=== PATIENT | male | born 1955 | race Caucasian/White ===

== ENCOUNTER 2018-10-18 13:32 | Inpatient (IN) | payer MEDICARE ==
[~2018-10-18] VITALS: Ht 175.3 cm; Wt 77.1 kg
[~2018-10-18 13:32] MED LIST: ALBUTEROL INHAL17 GM IH; CYCLOBENZAPRINE; CYMBALTA60 MG PO; FLEXERIL; FLEXERIL PO; FLOMAX0.4 MG PO; HYDROCODON-ACE1 EAC7 PO; HYOSCYAMINE0.375 M2 PO; MEDROLDOSEPACK PO; MIRAPEX 0.250.25 M1; MOBIC15 MG; NEURONTIN 300300 M1; NORCO 5-325 TA1 EAC1 PO; NORCO 5-325 TA1 EACH PO; OMEPRAZOLE40 MG; REQUIP 0.25 M0.25 MG PO; REQUIP XL2 MG; ZOFRAN ODT4 MG PO; ZOFRAN8 MG PO
[2018-10-18] MEDS ORDERED: CLONAZEPAM 1 MG1 M1 PO (13:45)
[2018-10-18 13:56] LABS: ABSOLUTE BASOPHILS 0.1 thou/uL (0.0-0.2); ABSOLUTE EOSINOPHILS 0.1 thou/uL (0.0-0.7); ABSOLUTE LYMPHOCYTES 1.1 thou/uL (0.8-5.3); ABSOLUTE MONOCYTES 0.9 thou/uL (0.0-1.2); BASOPHILS 0.8 %; EOSINOPHILS 1.7 %; HEMATOCRIT 46.3 % (42.0-52.0); HEMOGLOBIN 16.1 gm/dL (14.0-18.0); LYMPHOCYTES 17.6 %; MCH 32.1 pg (26.0-34.0); MCHC 34.7 g/dL (28.0-37.0); MCV 92.4 fL (80.0-100.0); MONOCYTES 14.2 %; MPV 7.9 fl. (7.2-11.1); NUCLEATED RBCS 0 /100WBC; PLATELET COUNT* 273 thou/uL (150-400); POLYS 65.7 %; RBC 5.01 mil/uL (4.50-6.00); RDW-CV 14.2 % (10.5-14.5)
[2018-10-18 14:13] LABS: APTT 30.8 Seconds (25.0-31.3); PROTIME 10.4 Seconds (9.20-11.50)
[2018-10-18 14:19] LABS: ALKALINE PHOSPHATASE 73 U/L (46-116); ANION GAP 9 mmol/L (7-16); BUN 8 mg/dL (7-18); CALCIUM 9.1 mg/dL (8.5-10.1); CHLORIDE 105 mmol/L (98-107); CO2 26 mmol/L (21-32); CREATININE 1.1 mg/dL (0.6-1.3); GLUCOSE 86 mg/dL (70-99); NT-PRO BRAIN NAT PEPTIDE 249 pg/mL (<300); POTASSIUM 3.7 mmol/L (3.5-5.1); SGOT 28 U/L (15-37); SGPT 33 U/L (30-65); SODIUM 140 mmol/L (136-145); TOTAL BILIRUBIN 0.8 mg/dL (<0.1-1.0); TOTAL PROTEIN 7.5 g/dL (6.4-8.2); TROPONIN-I LEVEL <0.06 ng/mL (<0.06)
[2018-10-18 14:24] LABS: BE 3.4 mmol/L (-2 to +3); PCO2 20.3 mmHg (35.0-45.0)
[2018-10-18 14:27] LABS: PO2 376.5 mmHg (75.0-100.0); pH 7.643 (7.340-7.450)
--- NOTE | 2018-10-18 14:44 | EKG ---
[place] [address] ELECTROCARDIOGRAM REPORT Name: EDOUARDGENI KNOWLES Room: [facility]#: [id number] Admission: 10/18/18 Attend Phys: Discharge: Date of : 53 Report #: [id number] THIS REPORT FOR: //name// 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 : 1955 Requested By: Wiliam Chen Order Number: [id number] MD: Enmanuel Altamirano Measurements Intervals Reubens Rate: 77 P: 67 GA: 143 QRS: 7 QRSD: 104 T: 79 QT: 404 QTc: 458 Interpretive Statements Sinus rhythm RSR' in V1 or V2, probably normal variant Compared to ECG 01/21/2010 21:22:31 RSR' in V1 or V2 now present Electronically Signed On 10-18-2018 14:43:54 CDT by Enmanuel Altamirano [email or web address] <ELECTRONICALLY SIGNED> By: Enmanuel Altamirano MD, [facility] 10/18/18 1443 36 36 Enmanuel Altamirano MD, FAC /EPI
[2018-10-18 18:31] LABS: BE 1.6 mmol/L (-2 to +3); PCO2 38.8 mmHg (35.0-45.0); pH 7.438 (7.340-7.450)
[2018-10-18 20:30] VITALS: BP 149/85
[2018-10-19] VITALS (36 sets, daily range): BP systolic 84–134; BP diastolic 46–82
[2018-10-19 04:13] LABS: HEMATOCRIT 46.9 % (42.0-52.0); HEMOGLOBIN 15.8 gm/dL (14.0-18.0); MCH 31.3 pg (26.0-34.0); MCHC 33.7 g/dL (28.0-37.0); MPV 8.3 fl. (7.2-11.1); RBC 5.05 mil/uL (4.50-6.00); RDW-CV 14.3 % (10.5-14.5); WBC 7.5 thou/uL (4.0-11.0)
[2018-10-19 04:33] LABS: ALBUMIN 3.8 g/dL (3.4-5.0); CALCIUM 8.9 mg/dL (8.5-10.1); CREATININE 1.4 mg/dL (0.6-1.3); POTASSIUM 3.7 mmol/L (3.5-5.1); TOTAL PROTEIN 7.3 g/dL (6.4-8.2)
[2018-10-19 05:13] LABS: BE 1.6 mmol/L (-2 to +3); PCO2 38.8 mmHg (35.0-45.0); PO2 103.8 mmHg (75.0-100.0); pH 7.438 (7.340-7.450)
[2018-10-19 09:33] LABS: INFLUENZA A ANTIGEN None Detected (None Detect); INFLUENZA B ANTIGEN None Detected (None Detect)
--- NOTE | 2018-10-19 12:57 | 2DMMODE ---
[place] [address] 2 D/M-MODE ECHOCARDIOGRAM Name: SILKEGENI KNOWLES Room: 003-P [facility] IN [facility]#: [id number] Admission: 10/18/18 Attend Phys: Tegan Salcedo, Discharge: Date of : 53 Date of Service: 10/19/18 1257 Report #: [id number] THIS REPORT FOR: //name// APPROVED REPORT Study performed: 10/19/2018 08:58:06 EXAM: Comprehensive 2D, Doppler, and color-flow Echocardiogram Patient Location: In-Patient Room #: 003 Status: routine BSA: 1.99 HR: 70 bpm BP: 149/85 mmHg Rhythm: NSR Other Information Study Quality: Good Indications Respiratory failure 2D Dimensions IVSd: 13.64 (7-11mm) LVOT Diam: 19.00 (18-24mm) LVDd: 50.93 mm PWd: 11.10 (7-11mm) Ascending Ao: 30.55 (22-36mm) LVDs: 36.50 (25-40mm) M-Mode Dimensions Aortic Root: 28.00 (22-37mm) Volumes Left Atrial Volume (Systole) LA ESV Index: 21.30 mL/m2 Aortic Valve AoV Peak Davonte.: 1.20 m/s AO Peak Gr.: 5.80 mmHg LVOT Max P.00 mmHg AO Mean Gr.: 3.36 mmHg LVOT Mean P.68 mmHg LVOT Max V: 1.00 m/s AO V2 VTI: 23.83 cm LVOT Mean V: 0.59 m/s LVOT V1 VTI: 19.94 cm Mitral Valve E/A Ratio: 1.36 [place] [address] 2 D/M-MODE ECHOCARDIOGRAM Name: GENI EDOUARD Room: [address] IN .R.#: [id number] Admission: 10/18/18 Attend Phys: Tegan Salcedo, Discharge: Date of : 53 Date of Service: 10/19/18 1257 Report #: [id number] MV Decel. Time: 213.41 ms MV E Max Davonte.: 0.69 m/s MV PHT: 61.89 ms MVA (PHT): 3.55 cm2 TDI E/Lateral E': 6.90 E/Medial E': 7.67 Medial E' Davonte.: 0.09 m/s Lateral E' Davonte.: 0.10 m/s Pulmonary Valve PV Peak Davonte.: 1.23 m/s PV Peak Gr.: 6.04 mmHg Left Ventricle The left ventricle is normal size. There is normal LV segmental wall motion. There is normal left ventricular wall thickness. Left ventricular systolic function is normal. The left ventricular ejection fraction is within the normal range. LVEF is 55-60%. The left ventricular diastolic function is normal. Right Ventricle The right ventricle is normal size. The right ventricular systolic function is normal. Atria The left atrium size is normal. The right atrium size is normal. Aortic Valve Mild aortic valve sclerosis. No aortic regurgitation is present. There is no aortic valvular stenosis. Mitral Valve The mitral valve is normal in structure. There is no mitral valve regurgitation noted. No evidence of mitral valve stenosis. Tricuspid Valve The tricuspid valve is normal in structure. Unable to assess PA pressure. Trace tricuspid regurgitation. Pulmonic Valve The pulmonary valve is normal in structure. There is no pulmonic valvular regurgitation. Great Vessels The aortic root is normal in size. IVC [place] [address] 2 D/M-MODE ECHOCARDIOGRAM Name: GENI EDOUARD Room: [address] IN [facility]#: [id number] Admission: 10/18/18 Attend Phys: Tegan Salcedo, Discharge: Date of : 53 Date of Service: 10/19/18 1257 Report #: [id number] collapses >50% with inspiration. Pericardium There is no pericardial effusion. <Conclusion> The left ventricle is normal size. There is normal left ventricular wall thickness. Left ventricular systolic function is normal. The left ventricular ejection fraction is within the normal range. LVEF is 55-60%. The left ventricular diastolic function is normal. The right ventricle is normal size. The left atrium size is normal. Mild aortic valve sclerosis. No aortic regurgitation is present. There is no aortic valvular stenosis. The mitral valve is normal in structure. The tricuspid valve is normal in structure. IVC is normal in size and collapses >50% with inspiration. There is no pericardial effusion. There is normal LV segmental wall motion. <ELECTRONICALLY SIGNED> By: Enmanuel Altamirano MD, FACC 10/19/18 1257 1257 1257 Enmanuel Altamirano MD, FACC /INF
[2018-10-19 15:44] LABS: URINE BILIRUBIN NEGATIVE (Negative); URINE BLOOD NEGATIVE (Negative); URINE CLARITY CLEAR; URINE COLOR YELLOW; URINE GLUCOSE-RANDOM NEGATIVE (Negative); URINE KETONES NEGATIVE (Negative); URINE LEUKOCYTES-REFLEX NEGATIVE (Negative); URINE NITRITE-REFLEX NEGATIVE (Negative); URINE PROTEIN NEGATIVE (Negative); URINE UROBILINOGEN 0.2 E.U./dl (0.2-1.0)
[2018-10-19 15:57] LABS: AMP/METHAMP Negative (Negative); BARBITURATES Negative (Negative); BENZODIAZEPINES POSITIVE (Negative); COCAINE Negative (Negative); METHADONE Negative (Negative); OPIATES Negative (Negative); PCP Negative (Negative); THC POSITIVE (Negative)
[2018-10-20] VITALS (34 sets, daily range): BP systolic 89–163; BP diastolic 48–96
[2018-10-20 01:37] LABS: HEMATOCRIT 43.2 % (42.0-52.0); HEMOGLOBIN 14.4 gm/dL (14.0-18.0); MCH 31.4 pg (26.0-34.0); MCHC 33.3 g/dL (28.0-37.0); MCV 94.3 fL (80.0-100.0); MPV 8.5 fl. (7.2-11.1); RBC 4.58 mil/uL (4.50-6.00); RDW-CV 14.7 % (10.5-14.5)
[2018-10-20 01:59] LABS: CALCIUM 8.3 mg/dL (8.5-10.1); CREATININE 1.3 mg/dL (0.6-1.3); MAGNESIUM 2.1 mg/dL (1.8-2.4); POTASSIUM 3.9 mmol/L (3.5-5.1)
[2018-10-20 05:54] LABS: BE -1.9 mmol/L (-2 to +3); PCO2 45.1 mmHg (35.0-45.0); PO2 81.7 mmHg (75.0-100.0); pH 7.344 (7.340-7.450)
--- NOTE | 2018-10-20 11:19 | CON ---
[address] [address] CONSULTATION Name: SILKEGENI KNOWLES Room: [address] IN M.R.#: [id number] Admission: 10/18/18 Attend Phys: Tegan Salcedo MD Discharge: Date of : 53 Report #: [id number] THIS REPORT FOR: //name// CC: Chrsi Salcedo DATE OF SERVICE: 10/19/2018 REASON FOR EVALUATION: Evaluate for acute respiratory failure, COPD with asthma exacerbation. REFERRING PHYSICIAN: Dr. Salcedo. HISTORY OF PRESENT ILLNESS: The patient is a 62-year-old gentleman. History was obtained from his family, from the records and nursing staff. He is currently intubated. He came into the ED yesterday complaining of shortness of breath and cough for 2 days. Per his , he has been coughing for 2 days. He had shortness of breath yesterday and requested to go to the Emergency Room, was in severe shortness of breath in the Emergency Room and they decided to intubate him. Also, has some back pain, chest pain. He is not on home O2. He has had COPD for several years, has been also smoking marijuana. There is no history of hemoptysis, history of chest pain. No history of fever. PAST MEDICAL HISTORY: COPD, asthma, history of pancreatitis, chronic pain. PAST SURGICAL HISTORY: Knee surgery, carpal tunnel, tonsillectomy. MEDICATIONS: He is on hydrocodone. Other medications reviewed including Klonopin, pramipexole. ALLERGIES: PENICILLIN, need to be avoided. FAMILY HISTORY: Noncontributory. SOCIAL HISTORY: Previous smoker, smoking marijuana. REVIEW OF SYSTEMS: As per history of present illness including cough, chest pain, history of asthma. PHYSICAL EXAMINATION: GENERAL: The patient not in distress. VITAL SIGNS: Stable. He has temperature of 36.1, pulse rate 81, respiratory rate is 16, blood pressure 134/82, oxygen saturation 94%. HEAD AND NECK: Neck supple. Oral mucosa clear. LUNGS: Clear to auscultation. CARDIOVASCULAR: [place] [address] CONSULTATION Name: GENI EDOUARD Room: [address] IN [facility]#: [id number] Admission: 10/18/18 Attend Phys: Tegan Salcedo MD Discharge: Date of : 53 Report #: [id number] ABDOMEN: Soft, nontender. EXTREMITIES: No edema. PSYCHIATRIC: Sedated. NEUROLOGIC: No focal deficit. LABORATORY AND OTHER DATABASE: Chest x-ray: Hyperinflation, clear otherwise. White blood cell count 7.5, hemoglobin 15.8, platelets 260. Chemistry: His creatinine 1.4. ASSESSMENT AND PLAN: 1. Acute respiratory failure related to chronic obstructive pulmonary disease/asthma exacerbation. At this time, on steroids every 8 hours, agree with breathing treatment. At this time with possible sepsis developing pneumonia, he is on Levaquin. We will add vancomycin and aztreonam with penicillin allergy. Differential diagnosis, thromboembolism is less likely as the patient's echocardiogram showed normal ejection fraction and he has normal RV. We will obtain lower extremity Dopplers. 2. Respiratory failure. We will discontinue Versed as it may prolong encephalopathy. We will obtain breathing trial in the morning. 3. Acute kidney injury per primary team. Agree with IV fluids. Differential diagnosis includes sepsis. He is on IV fluids. 4. We will do a breathing trial in the morning. This was discussed with his , his brother and his brother all from out of state who is a physician as well. This will be discussed with Dr. Salcedo too. <ELECTRONICALLY SIGNED> By: Minerva Zavala MD 10/20/18 1119 1315 [id number] Zavala MD /nt
[2018-10-20 11:30] LABS: BE -4.4 mmol/L (-2 to +3); PCO2 33.3 mmHg (35.0-45.0); PO2 89.5 mmHg (75.0-100.0); pH 7.388 (7.340-7.450)
[2018-10-20] MEDS ORDERED: ZANAFLEX4 MG PO (21:14)
[2018-10-20] MEDS ORDERED: MIRAPEX1 MG PO (21:37)
[2018-10-21] VITALS (10 sets, daily range): BP systolic 120–168; BP diastolic 60–96
[2018-10-21 04:25] LABS: HEMATOCRIT 44.1 % (42.0-52.0); HEMOGLOBIN 14.4 gm/dL (14.0-18.0); MCH 30.9 pg (26.0-34.0); MCHC 32.7 g/dL (28.0-37.0); MCV 94.4 fL (80.0-100.0); MPV 8.3 fl. (7.2-11.1); RBC 4.67 mil/uL (4.50-6.00); RDW-CV 14.6 % (10.5-14.5)
[2018-10-21 05:05] LABS: CALCIUM 8.1 mg/dL (8.5-10.1); CREATININE 1.1 mg/dL (0.6-1.3); MAGNESIUM 2.2 mg/dL (1.8-2.4); POTASSIUM 3.8 mmol/L (3.5-5.1); TOTAL BILIRUBIN 0.3 mg/dL (<0.1-1.0); TOTAL PROTEIN 6.4 g/dL (6.4-8.2)
[2018-10-21 06:21] LABS: BE -1.1 mmol/L (-2 to +3); PCO2 36.8 mmHg (35.0-45.0); PO2 78.5 mmHg (75.0-100.0); pH 7.413 (7.340-7.450)
--- NOTE | 2018-10-21 08:10 | CON ---
[address] [address] CONSULTATION Name: EDOUARDGENI KNOWLES Room: [address] IN .R.#: [id number] Admission: 10/18/18 Attend Phys: Tegan Salcedo MD Discharge: Date of : 53 Report #: [id number] THIS REPORT FOR: //name// CC: Chris Salcedo INDICATION: Transient bradycardia. HISTORY OF PRESENT ILLNESS: The patient is a 62-year-old gentleman admitted to the hospital with acute respiratory distress. He was intubated and remained stable in the ICU. Last night, he had an episode of bradycardia with heart rates in the 30s that resolved spontaneously. He has had no recurrence. Per the family, he has no prior cardiac history. Cardiac workup 10-15 years ago was unremarkable. Cardiac enzymes are unremarkable. Admission EKG shows sinus rhythm without acute ST or T-wave abnormalities. PAST MEDICAL HISTORY: COPD, asthma, previous surgery to the right middle finger, right elbow, bilateral knees and bilateral wrists. PAST SURGICAL HISTORY: He has had tonsillectomy. History of pancreatitis. FAMILY HISTORY: Noncontributory. SOCIAL HISTORY: The patient quit smoking over a year ago. He does not drink alcohol. REVIEW OF SYSTEMS: Not obtainable. PHYSICAL EXAMINATION: VITAL SIGNS: Blood pressure 118/71, pulse 77. GENERAL: This is a well-developed, well-nourished appearing gentleman who is intubated and slightly arousable. HEENT: Head is normocephalic, atraumatic. NECK: Without jugular venous distention. CHEST: Clear to auscultation anteriorly. CARDIAC: Regular rhythm without gallop or murmur. ABDOMEN: Soft and nontender. Positive bowel sounds. EXTREMITIES: Shows no edema. Peripheral pulses 2+ and easily palpable. SKIN: Warm and dry. IMPRESSION AND RECOMMENDATIONS: 1. Transient bradycardia, resolved spontaneously, likely due to underlying respiratory issues. I see no need for acute cardiac intervention at this time. 2. Acute respiratory failure, on ventilator. The [place] [address] CONSULTATION Name: EDOUARDGENI KNOWLES Room: [address] IN [facility]#: [id number] Admission: 10/18/18 Attend Phys: Tegan Salcedo MD Discharge: Date of : 53 Report #: [id number] plans for extubation today if he passes his is weaning trial. 3. Chronic obstructive pulmonary disease, per Pulmonology. <ELECTRONICALLY SIGNED> By: Salo Castillo MD, FACC 10/21/18 0810 1126 [id number] Castillo MD, FACC /nt
[2018-10-22 00:12] VITALS: BP 129/69
[2018-10-22 04:00] VITALS: BP 148/79
[2018-10-22 05:04] LABS: HEMATOCRIT 41.5 % (42.0-52.0); HEMOGLOBIN 13.9 gm/dL (14.0-18.0); MCH 31.3 pg (26.0-34.0); MCHC 33.4 g/dL (28.0-37.0); MCV 93.6 fL (80.0-100.0); MPV 8.6 fl. (7.2-11.1); RBC 4.43 mil/uL (4.50-6.00); RDW-CV 14.3 % (10.5-14.5); WBC 10.2 thou/uL (4.0-11.0)
[2018-10-22 05:27] LABS: CALCIUM 8.2 mg/dL (8.5-10.1); MAGNESIUM 2.2 mg/dL (1.8-2.4); POTASSIUM 3.8 mmol/L (3.5-5.1)
[2018-10-22 08:00] VITALS: BP 170/96
[2018-10-22 11:50] VITALS: BP 162/81
[2018-10-22 16:01] VITALS: BP 160/85
[2018-10-22 20:00] VITALS: BP 171/84
[2018-10-23] VITALS (7 sets, daily range): BP systolic 132–168; BP diastolic 69–108
[2018-10-23 03:51] LABS: HEMATOCRIT 42.6 % (42.0-52.0); HEMOGLOBIN 14.1 gm/dL (14.0-18.0); MCH 30.9 pg (26.0-34.0); MCV 93.5 fL (80.0-100.0); MPV 8.1 fl. (7.2-11.1); RBC 4.56 mil/uL (4.50-6.00); RDW-CV 14.4 % (10.5-14.5); WBC 9.3 thou/uL (4.0-11.0)
[2018-10-23 04:04] LABS: CALCIUM 8.9 mg/dL (8.5-10.1); CREATININE 1.1 mg/dL (0.6-1.3); MAGNESIUM 2.1 mg/dL (1.8-2.4); POTASSIUM 3.7 mmol/L (3.5-5.1)
[2018-10-24 00:09] VITALS: BP 150/79
[2018-10-24 04:06] VITALS: BP 124/69
[2018-10-24] MEDS ORDERED: LEVAQUIN 750 M750 MG PO (09:18)
[2018-10-24] MEDS ORDERED: PREDNISONE 10 M10 MG PO ×2 (11:11→11:16)
[2018-10-24] MEDS ORDERED: ADVAIR HFA 230M12 GM INH (11:11)
[2018-10-24 11:42] VITALS: BP 124/69
[2018-10-24 12:23] VITALS: BP 131/86
== END 2018-10-24 13:16 | disposition home or self-care (01) | DRG 208 ==
LOC: M.ERS 13:32 → M.ICU 15:12 → M.TBA-ER 15:12 → M.ICU 19:03 → M.TBA-ER 19:18 → M.ICU 20:11 → M.2W 10-21 10:20
PROVIDERS: Family Medicine; Internal Medicine Pulmonary Disease; ADMIT Internal Medicine
PROC: 5A1945Z Respiratory Ventilation, 24-96 Consecutive Hours (ICD-10-PCS; principal; 2018-10-18)
PROC: 0BH17EZ Insertion of Endotracheal Airway into Trachea, Via Natural or Artificial Opening (ICD-10-PCS; 2018-10-18)
PROC: 02HV33Z Insertion of Infusion Device into Superior Vena Cava, Percutaneous Approach (ICD-10-PCS; 2018-10-19)
DX: J96.21 Acute and chronic respiratory failure with hypoxia (principal); J44.1 Chronic obstructive pulmonary disease with (acute) exacerbation; R65.10 Systemic inflammatory response syndrome (SIRS) of non-infectious origin without acute organ dysfunction; J45.901 Unspecified asthma with (acute) exacerbation; N17.9 Acute kidney failure, unspecified; E87.0 Hyperosmolality and hypernatremia; J98.11 Atelectasis; F12.90 Cannabis use, unspecified, uncomplicated; G89.29 Other chronic pain; M47.892 Other spondylosis, cervical region; Z88.0 Allergy status to penicillin; Z79.899 Other long term (current) drug therapy; Z87.891 Personal history of nicotine dependence

== ENCOUNTER 2019-05-06 16:11 | Emergency (ER) | payer MEDICARE ==
[~2019-05-06] VITALS: Ht 180.3 cm; Wt 86.2 kg
[~2019-05-06 16:11] MED LIST changes: +ADVAIR HFA 230M12 GM INH; +CLONAZEPAM 1 MG1 M1 PO; +LEVAQUIN 750 M750 MG PO; +MIRAPEX1 MG PO; +PREDNISONE 10 M10 MG PO; +ZANAFLEX4 MG PO
[2019-05-06] MEDS ORDERED: FLOMAX0.4 MG PO (16:21)
[2019-05-06] MEDS ORDERED: CYMBALTA20 MG PO (16:21)
[2019-05-06] MEDS ORDERED: TIZANIDINE HCL4 M1 PO (16:22)
[2019-05-06] MEDS ORDERED: CLONAZEPAM 0.50.5 M1 PO (16:22)
[2019-05-06] MEDS ORDERED: OMEPRAZOLE 20 M20 M1 PO (16:23)
[2019-05-06 17:42] LABS: HEMATOCRIT 45.7 % (42.0-52.0); HEMOGLOBIN 15.2 gm/dL (14.0-18.0); MCH 30.9 pg (26.0-34.0); MCHC 33.3 g/dL (28.0-37.0); MCV 92.9 fL (80.0-100.0); MPV 7.7 fl. (7.2-11.1); NUCLEATED RBCS 0 /100WBC; PLATELET COUNT* 321 thou/uL (150-400); RBC 4.92 mil/uL (4.50-6.00); RDW-CV 14.3 % (10.5-14.5); WBC 11.3 thou/uL (4.0-11.0)
[2019-05-06] MEDS ORDERED: NEURONTIN 400M400 M2 PO (17:48)
[2019-05-06] MEDS ORDERED: NORCO 5-325 TA1 EAC1 PO (17:48)
[2019-05-06 17:58] LABS: CALCIUM 8.7 mg/dL (8.5-10.1); CREATININE 1.3 mg/dL (0.6-1.3); POTASSIUM 3.6 mmol/L (3.5-5.1)
[2019-05-06 18:00] LABS: URINE BLOOD NEGATIVE (Negative); URINE CLARITY CLEAR; URINE COLOR YELLOW; URINE GLUCOSE-RANDOM NEGATIVE (Negative); URINE KETONES NEGATIVE (Negative); URINE LEUKOCYTES-REFLEX NEGATIVE (Negative); URINE NITRITE-REFLEX NEGATIVE (Negative); URINE PROTEIN NEGATIVE (Negative); URINE SPECIFIC GRAVITY >= 1.030 (1.005-1.030); URINE UROBILINOGEN 0.2 E.U./dl (0.2-1.0)
[2019-05-06 18:01] VITALS: BP 123/99
[2019-05-06 18:01] LABS: ICTOTEST (BILI CONFIRMATORY) Positive (Negative); URINE BILIRUBIN 3+ (Negative)
[2019-05-06 18:03] LABS: ALBUMIN 3.5 g/dL (3.4-5.0); TOTAL BILIRUBIN 0.7 mg/dL (<0.1-1.0); TOTAL PROTEIN 6.9 g/dL (6.4-8.2)
[2019-05-06 18:13] LABS: ABSOLUTE BASOPHILS 0.1 thou/uL (0.0-0.2); ABSOLUTE EOSINOPHILS 0.5 thou/uL (0.0-0.7); ABSOLUTE LYMPHOCYTES 2.9 thou/uL (0.8-5.3); ABSOLUTE MONOCYTES 0.6 thou/uL (0.0-1.2); ABSOLUTE NEUTROPHILS 7.2 thou/uL (1.6-8.1); ATYPICAL LYMPHS 2 %; PLATELET ESTIMATE ADEQUATE
== END 2019-05-06 18:02 | disposition home or self-care (01) ==
LOC: M.ERS 16:11
PROVIDERS: Personal Emergency Response Attendant
DX: G25.81 Restless legs syndrome (principal); M54.5 Low back pain; J44.9 Chronic obstructive pulmonary disease, unspecified; Z90.49 Acquired absence of other specified parts of digestive tract; Z88.0 Allergy status to penicillin